=== PATIENT | male | born 1960 | race Hispanic/Latino ===

== ENCOUNTER → 2020-12-14 | Outpatient (CLI) | payer BC ==
[~2020-12-14] MED LIST: IOHEXOL-350 75 ML VIAL IV ONE
== END | disposition home or self-care (01) ==
LOC: RAH 08:26
PROVIDERS: ATTEND Family Medicine
DX: K57.30 Diverticulosis of large intestine without perforation or abscess without bleeding (principal)
CPT/HCPCS: 74170; Q9967